=== PATIENT | male | born 1995 | race Two or more races ===

== ENCOUNTER 2023-06-15 15:02 | Emergency (ER) | payer SELFPAY ==
[2023-06-15] MEDS ORDERED: Magnesium Citrate Solution 296 ML Bottle PO ONE (16:56)
== END 2023-06-15 17:10 | disposition home or self-care (01) ==
LOC: JD.ED 15:02
DX: K59.01 Slow transit constipation (principal)
CPT/HCPCS: 74018; 99284; A9270; 99283